=== PATIENT | female | born 1940 | race Caucasian/White ===

== ENCOUNTER 2016-03-25 17:53 | Emergency (ER) | payer OTHER ==
[2016-03-25 18:13] VITALS: RESP 18
--- NOTE | 2016-03-25 19:01 | EDPHY ---
H & P Stated Complaint: N/V/D x1.5 wks Time Seen by Provider: 03/25/16 18:59 - Personal History Current Tetanus/Diphtheria Vaccine: Yes Current Tetanus Diphtheria and Acellular Pertussis (TDAP): Yes - Medical/Surgical History Hx Asthma: No Hx Chronic Respiratory Disease: No Hx Diabetes: No Hx Cardiac Disease: No Hx Renal Disease: No Hx Cirrhosis: No Hx Alcoholism: No Hx HIV/AIDS: No Hx Splenectomy or Spleen Trauma: No Other PMH: hypothyroid, diverticulitis, c-diff 2014 - Social History Smoking Status: Never smoked Constitutional: Initial Vital Signs Temperature (C) 38.6 C H 03/25/16 18:10 Heart Rate 86 03/25/16 18:10 Respiratory Rate 18 03/25/16 18:10 Blood Pressure 116/53 L 03/25/16 18:10 O2 Sat (%) 89 L 03/25/16 18:10 O2 Delivery Mode Room Air Allergies/Adverse Reactions: Adhesive Bandage *RETIRED-10/31/11 [Adhesive Bandage] Allergy (Mild, Verified 14:41) Other-Enter Comments codeine [Codeine] Allergy (Unknown, Verified 08/22/15 14:41) Other-Enter Comments donepezil HCl [From Aricept] Allergy (Verified 03/25/16 18:14) Home Medications: Medication Instructions Recorded Fosamax 5mg 03/25/16 GABAPENTIN 03/25/16 Levothyroxine 03/25/16 Meclizine HCl 03/25/16 Namenda 10 mg 03/25/16 Ocuvite Softgel 03/25/16 Vitamin B Comp W-C 03/25/16 Vsl#3 Cap (*) 03/25/16 Medical Decision Making ED Course/Re-evaluation: CHIEF COMPLAINT: HISTORY OF PRESENT ILLNESS: must have 4 elements: Location, Quality, Severity , Duration, Timing, Context, Modifying Factors, Associated Signs and Symptoms REVIEW OF SYSTEMS: A 10 point review of systems was performed and is negative with the exception of the elements mentioned in the history of present illness. PHYSICAL EXAM: HR, BP, O2 Sat, RR. Temp noted General Appearance: Alert, well hydrated, appropriate, and non-toxic appearing. Head: Atraumatic without scalp tenderness or obvious injury Eyes: Pupils equal, round, reactive to light and accommodation, EOMI, no trauma , no injection. Ears: Clear bilaterally, no perforation, normal landmarks Nose: Atraumatic, no rhinorrhea, clear. Throat: There is no erythema or exudates, no lesions, normal tonsils, mucus membranes moist. Neck: Supple, 2+ carotid upstroke, nontender, no lymphadenopathy. Respiratory: No retractions, no distress, no wheezes, and no accessory muscle use. Lungs are clear to auscultation bilaterally. Cardiovascular: Regular rate and rhythm, no murmurs, rubs, or gallops. Bilateral carotid, radial, dorsalis pedis, and posterior tibial pulses intact. Good capillary refill all extremities. Gastrointestinal: Abdomen is soft, nontender, non-distended, no masses, no rebound, no guarding, no peritoneal signs. Musculoskeletal: Normal active ROM of all extremities, atraumatic. Neurological: Alert, appropriate, and interactive. The patient has normal DTRs and non-focal cranial nerves, motor, sensory, and cerebellar exam. Skin: No rashes, good turgor, no nodules on palpation. Past medical history: Past surgical history: Family history: Social history: DIAGNOSTICS/PROCEDURES/CRITICAL CARE TIME: DIFFERENTIAL DIAGNOSIS: MEDICAL DECISION MAKING:
[2016-03-25] MEDS ORDERED: NS 1,000 ML IV ONE ×2 (19:07)
[2016-03-25 19:09] LABS: % IMMATURE GRANULYOCYTES 0.3 % (0.0-1.1); ABSOLUTE IMMATURE GRANULOCYTES 0.02 10^3/uL (0.00-0.10); ADD DIFF? NO; ADD MORPH? NO; ADD SCAN? NO; ATYPICAL LYMPHOCYTE FLAG 20 (0-99); FRAGMENT RBC FLAG 0 (0-99); HEMATOCRIT 36.8 % (38.0-47.0); HEMOGLOBIN 12.6 g/dL (12.6-16.3); LEFT SHIFT FLG 10 (0-99); LIPEMIA HEMOLYSIS FLAG 90 (0-99); MEAN CELL HEMOGLOBIN 29.9 pg (27.9-34.1); MEAN CELL HEMOGLOBIN CONCENTR. 34.2 g/dL (32.4-36.7); MEAN CELL VOLUME 87.2 fL (81.5-99.8); MEAN PLATELET VOLUME 10.3 fL (8.7-11.7); PLATELET CLUMPS FLAG 10 (0-99); PLATELET COUNT 231 10^3/uL (150-400); RED BLOOD CELL COUNT 4.22 10^6/uL (4.18-5.33); RED CELL DISTRIBUTION WIDTH 12.9 % (11.5-15.2)
--- NOTE | 2016-03-25 19:21 | EDPHY ---
H & P Stated Complaint: N/V/D x1.5 wks Time Seen by Provider: 03/25/16 18:59 HPI/ROS: CHIEF COMPLAINT: Acute exacerbation of chronic diarrhea with some nausea and vomiting HISTORY OF PRESENT ILLNESS: The patient has a history of chronic diarrhea attributed to lymphocytic colitis. The patient typically takes Imodium for this condition. Over the past 10 days she has had increased frequency of diarrhea. She has also had some nausea and vomiting. The patient denies any fever or abdominal pain. She denies any hematemesis or melena. The patient felt increasingly weak tonight prompting her visit to the ED. The patient has had no recent medication changes. The patient does have a history of mild dementia, chronic tremor as well as urinary frequency. The patient has not been on recent antibiotics. The patient has no additional complaints. REVIEW OF SYSTEMS: A comprehensive 10 point review of systems is otherwise negative aside from elements mentioned in the history of present illness. Source: Patient Exam Limitations: No limitations - Personal History Current Tetanus/Diphtheria Vaccine: Yes Current Tetanus Diphtheria and Acellular Pertussis (TDAP): Yes - Medical/Surgical History Hx Asthma: No Hx Chronic Respiratory Disease: No Hx Diabetes: No Hx Cardiac Disease: No Hx Renal Disease: No Hx Cirrhosis: No Hx Alcoholism: No Hx HIV/AIDS: No Hx Splenectomy or Spleen Trauma: No Other PMH: hypothyroid, diverticulitis, c-diff 2014 - Social History Smoking Status: Never smoked - Physical Exam Exam: General Appearance: Elderly female, no acute distress Eyes: Pupils equal and round no pallor or injection ENT, Mouth: Dry mucous membranes Respiratory: There are no retractions, lungs are clear to auscultation Cardiovascular: Regular rate and rhythm Gastrointestinal: Abdomen is soft and nontender, no masses, bowel sounds normal Neurological: A&O, normal motor function, normal sensory exam, normal cranial nerves Skin: Warm and dry, no rashes Musculoskeletal: Neck is supple nontender Extremities: symmetrical, full range of motion Constitutional: Initial Vital Signs Temperature (C) 38.6 C H 03/25/16 18:10 Heart Rate 86 03/25/16 18:10 Respiratory Rate 18 03/25/16 18:10 Blood Pressure 116/53 L 03/25/16 18:10 O2 Sat (%) 89 L 03/25/16 18:10 O2 Delivery Mode Room Air Allergies/Adverse Reactions: Adhesive Bandage *RETIRED-10/31/11 [Adhesive Bandage] Allergy (Mild, Verified 14:41) Other-Enter Comments codeine [Codeine] Allergy (Unknown, Verified 08/22/15 14:41) Other-Enter Comments donepezil HCl [From Aricept] Allergy (Verified 03/25/16 18:14) Home Medications: Medication Instructions Recorded Fosamax 5mg 03/25/16 GABAPENTIN 03/25/16 Levothyroxine 03/25/16 Meclizine HCl 03/25/16 Namenda 10 mg 03/25/16 Ocuvite Softgel 03/25/16 Vitamin B Comp W-C 03/25/16 Vsl#3 Cap (*) 03/25/16 Medical Decision Making ED Course/Re-evaluation: The patient is triage temperature was incorrectly recorded at 38.6, her temperature is actually 37.2 orally. The patient presents to the ED with an acute exacerbation of chronic diarrhea complicated by mild dehydration. The patient will be rehydrated in the emergency department. Laboratory testing was done in the ED and no significant abnormality is noted. The patient's abdominal examination is benign. The patient was re-evaluated at 8:30 p.m.. Vital signs are stable. She is ambulatory and tolerating po's. The patient would like to be discharged home. Her abdominal examination remains benign. I feel that this is reasonable. She is instructed to return to the ED for any worsening abdominal pain, vomiting, signs of dehydration or other concerns. Differential Diagnosis: Differential diagnosis considered includes dehydration, metabolic abnormality, bowel perforation, obstruction, pancreatitis, cholecystitis, colitis - Data Points Laboratory Results: Laboratory Results 03/25/16 18:59 03/25/16 18:59 03/25/16 18:59 WBC 7.78 10^3/uL (3.80-9.50) RBC 4.22 10^6/uL (4.18-5.33) Hgb 12.6 g/dL (12.6-16.3) Hct 36.8 L % (38.0-47.0) MCV 87.2 fL (81.5-99.8) MCH 29.9 pg (27.9-34.1) MCHC 34.2 g/dL (32.4-36.7) RDW 12.9 % (11.5-15.2) Plt Count 231 10^3/uL (150-400) MPV 10.3 fL (8.7-11.7) Neut % (Auto) 81.4 H % (39.3-74.2) Lymph % (Auto) 10.0 L % (15.0-45.0) [place] % (Auto) 8.0 % (4.5-13.0) Eos % (Auto) 0.0 L % (0.6-7.6) Baso % (Auto) 0.3 % (0.3-1.7) Nucleat RBC Rel Count 0.0 % (0.0-0.2) Absolute Neuts (auto) 6.34 10^3/uL (1.70-6.50) Absolute Lymphs (auto) 0.78 L 10^3/uL (1.00-3.00) Absolute Monos (auto) 0.62 10^3/uL (0.30-0.80) Absolute Eos (auto) 0.00 L 10^3/uL (0.03-0.40) Absolute Basos (auto) 0.02 10^3/uL (0.02-0.10) Absolute Nucleated RBC 0.00 10^3/uL (0-0.01) Immature Gran % 0.3 % (0.0-1.1) Immature Gran # 0.02 10^3/uL (0.00-0.10) Sodium 137 mEq/L (134-144) Potassium 3.5 mEq/L (3.5-5.2) Chloride 105 mEq/L (97-110) Carbon Dioxide 23 mEq/l (22-31) Anion Gap 9 mEq/L (8-16) BUN 15 mg/dL (7-23) Creatinine 0.9 mg/dL (0.6-1.0) Estimated GFR > 60 Glucose 106 H mg/dL (70-100) Calcium 8.8 mg/dL (8.5-10.4) Total Bilirubin 0.9 mg/dL (0.1-1.4) Conjugated Bilirubin 0.3 mg/dL (0.0-0.5) Unconjugated Bilirubin 0.6 mg/dL (0.0-1.1) AST 27 IU/L (14-46) ALT 39 IU/L (9-52) Alkaline Phosphatase 85 IU/L (38-126) Total Protein 6.4 g/dL (6.3-8.2) Albumin 3.3 L g/dL (3.5-5.0) Lipase 47.0 IU/L (23-300) Medications Given: Discontinued Medications Sodium Chloride (Ns) 1,000 mls @ 0 mls/hr IV ONCE ONE PRN Reason: Wide Open Stop: 03/25/16 19:08 Last Admin: 03/25/16 18:45 Dose: 1,000 mls Sodium Chloride (Ns) 1,000 mls @ 0 mls/hr IV ONCE ONE PRN Reason: Wide Open Stop: 03/25/16 19:08 Last Admin: 03/25/16 19:15 Dose: 1,000 mls Departure - Departure Disposition: Home, Routine, Self-Care Clinical Impression: Acute diarrhea Condition: Good Instructions: Dehydration (ED) Additional Instructions: 1. Please drink plenty of fluids and stay hydrated. 2. Continue Imodium as needed for chronic diarrhea. 3. Please follow up with your primary care provider as scheduled. 4. Please return to the ED for severe pain, fever or other concerns. Referrals: Merline Wynne MD [Primary Care Provider] - As per Instructions
[2016-03-25 19:26] LABS: ALANINE AMINOTRANSFERASE 39 IU/L (9-52); ALBUMIN 3.3 g/dL (3.5-5.0); ALKALINE PHOSPHATASE 85 IU/L (38-126); ANION GAP 9 mEq/L (8-16); ASPARTATE AMINOTRANSFERASE 27 IU/L (14-46); BILIRUBIN,TOTAL 0.9 mg/dL (0.1-1.4); BILIRUBIN-CONJUGATED 0.3 mg/dL (0.0-0.5); BILIRUBIN-UNCONJUGATED 0.6 mg/dL (0.0-1.1); CALCIUM 8.8 mg/dL (8.5-10.4); CARBON DIOXIDE 23 mEq/l (22-31); CHLORIDE 105 mEq/L (97-110); CREATININE 0.9 mg/dL (0.6-1.0); GLOMERULAR FILTRATION RATE > 60; GLUCOSE 106 mg/dL (70-100); POTASSIUM 3.5 mEq/L (3.5-5.2); SODIUM 137 mEq/L (134-144); TOTAL PROTEIN 6.4 g/dL (6.3-8.2)
[2016-03-25 20:49] VITALS: BP 122/51; PULSE 82; TEMP 98.8; O2SAT 92
== END 2016-03-25 21:05 | disposition home or self-care (01) ==
DX: R19.7 Diarrhea, unspecified (principal)

== ENCOUNTER → 2017-04-03 | Outpatient (CLI) | payer OTHER | LOC: BMCIMAGING 13:55 | PROVIDERS: ATTEND Internal Medicine | DX: Z13.820 Encounter for screening for osteoporosis (principal); M81.0 Age-related osteoporosis without current pathological fracture ==

== ENCOUNTER → 2018-03-08 | Outpatient (CLI) | payer OTHER | LOC: BMCIMAGING 15:05 | PROVIDERS: ATTEND Podiatrist Foot & Ankle Surgery | DX: M79.671 Pain in right foot (principal); M20.41 Other hammer toe(s) (acquired), right foot ==